=== PATIENT | female | born 1985 | race African-American/Black ===

== ENCOUNTER 2016-05-20 22:29 | Emergency (ER) | payer OTHER ==
[~2016-05-20] VITALS: Ht 180.3 cm; Wt 69.0 kg
[2016-05-21] MEDS ORDERED: ACETAMINOPHEN 325MG TABLET PO ONE (01:00)
[2016-05-21 02:50] VITALS: BP 127/80
== END 2016-05-21 02:50 | disposition home or self-care (01) ==
LOC: ER 05-21 02:42
DX: S86.011A Strain of right Achilles tendon, initial encounter (principal); M79.671 Pain in right foot; W22.8XXA Striking against or struck by other objects, initial encounter; Y93.67 Activity, basketball; Y99.8 Other external cause status; Y92.89 Other specified places as the place of occurrence of the external cause
CPT/HCPCS: 29515; 73610; 73630; 81025; 99284; Z7610

== ENCOUNTER 2017-12-13 19:50 | Emergency (ER) | payer OTHER ==
[~2017-12-13] VITALS: Ht 182.9 cm; Wt 70.0 kg
[2017-12-13] MEDS ORDERED: PREDNISONE 20MG TABLET PO STA (20:33)
[2017-12-13] MEDS ORDERED: ALBUTEROL (0.083%) 2.5MG/3ML NEB HHN STA (20:33)
[2017-12-13] MEDS ORDERED: IPRATROPIUM BROMIDE (0.02%) 0.5MG/2.5ML NEB HHN STA (20:33)
[2017-12-13 23:11] VITALS: BP 110/84
== END 2017-12-13 21:33 | disposition home or self-care (01) ==
LOC: ER 19:50
DX: J45.909 Unspecified asthma, uncomplicated (principal); Z88.6 Allergy status to analgesic agent
CPT/HCPCS: 94644; 99285; J7512; J7611